=== PATIENT | female | born 1945 | race Caucasian/White ===

== ENCOUNTER 2017-09-16 19:58 | Observation (INO) | payer MEDICARE, OTHER, SELFPAY ==
[2017-09-16 19:59] VITALS: BP 158/75; PULSE 91; RESP 18; TEMP 35.9; O2SAT 99; BMI 25.0
[2017-09-16 22:21] VITALS: BP 147/67; PULSE 82; RESP 16; O2SAT 97
--- NOTE | 2017-09-16 23:09 | EKG12_ITS ---
Test Reason : OTHER PAIN Blood Pressure : / mmHG Vent. Rate : 078 BPM Atrial Rate : 078 BPM P-R Int : 174 ms QRS Dur : 074 ms QT Int : 386 ms P-R-T Axes : 060 004 042 degrees QTc Int : 440 ms Normal sinus rhythm Normal ECG Confirmed by JAMES ISRAEL, ARNAUD ([id number]), editor sound YUDY JARRELL ([id number]) on 09/18/2017 3:37:12 PM Referred By: KATHERYN Confirmed By:ARNAUD RAMIREZ MD
--- NOTE | 2017-09-16 23:09 | RAD_ITS ---
STUDY: X-RAY CHEST REASON FOR EXAM: Female, 71 years old. Back pain radiating down both arms TECHNIQUE: PA and lateral views of the chest. COMPARISON: None. 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 The lungs are clear and expanded. There is no demonstrated pleural abnormality. Normal size heart. Normal mediastinum and jose. Normal visualized pulmonary arteries. Normal visualized aortic arch and descending thoracic aorta. There is a minimal lower thoracic levoscoliosis. Normal visualized ribs, clavicles, and shoulders. There is no demonstrated abnormality of the visualized soft tissue structures of the upper abdomen. RAD/Chest PA and Lateral IMPRESSION: Minimal lower thoracic levoscoliosis. No acute cardiopulmonary disease process is seen. Electronically Signed: Nish Gonzalez MD at 23:55 EDT , Service support ,
--- NOTE | 2017-09-16 23:13 | NURSING ---
NO OLD EKG'S IN MUSE
[2017-09-16 23:14] VITALS: O2SAT 97
[2017-09-16 23:27] LABS: Absolute Neutrophil Count 3.4 X10^3/uL (2.0-7.7); Basophil# 0.02 X10^3/uL; Basophil% 0.3 % (0-1); Eosinophil# 0.07 X10^3/uL; Eosinophils% 1.1 % (0-5); Hematocrit 39.8 % (37-47); Hemoglobin 13.2 g/dl (12.0-15.0); Lymphocyte % 35.7 % (19-41); Mean Corp Hgb Conc 33.2 g/gl (32-36); Mean Corpuscular Hgb 28.9 pg (27.0-32.0); Mean Corpuscular Volume 87.1 fL (81-99); Mean Platelet Vol. 9.1 fl (6.2-12.0); Monocyte# 0.65 X10^3/uL; Monocyte% 10.1 % (0-10); Neutrophil # 3.41 X10^3/uL (2.7-7.7); Neutrophil % 52.8 % (47-70); POSITIVE COUNT NO; POSITIVE DIFFERENTIAL NO; POSITIVE MORPHOLOGY NO; Platelet Count 225 K/mm3 (150-450); RBC Distribution Width CV 12.6 % (11.6-14.6); RBC Distribution Width SD 40.5 fl (35.1-43.9); Red Blood Count 4.57 M/mm3 (4.2-5.4); White Blood Count 6.5 K/mm3 (4.4-11.0)
[2017-09-16 23:49] LABS: Anion Gap 6 (5-15); BUN 12 mg/dL (7-18); BUN/Creat Ratio 16.2 RATIO (10-20); Calcium,Total 9.2 mg/dL (8.5-10.1); Chloride 104 mmol/L (98-107); Creatinine, Serum 0.74 mg/dL (0.55-1.02); EST Glomerular Filtration Rate 82 mL/min (>60); Est Glom Filt Rate - Afr Amer 100 mL/min (>60); Glucose 135 mg/dL (74-106); Potassium 3.3 mmol/L (3.5-5.1); Sodium Level 141 mmol/L (136-145)
[2017-09-17] VITALS (11 sets, daily range): BP systolic 118–148; BP diastolic 54–81; PULSE 71–91; RESP 15–18; TEMP 36.7–37.1; O2SAT 97–98; BMI 25.0
--- NOTE | 2017-09-17 00:31 | ED.DCSUM_ITS ---
- ER Visit Summary Date of Service: 09/17/17 Chief Complaint: Bilateral arm pain History of Present Illness: The patient is a 71 F who presents with bilateral arm pain. Over the past 3-4 days she has had intermittent episodes of aching pain in both of her upper arms. She also gets aching pain in her upper back. This lasts several minutes. She denies any anterior chest pain with this. She does note some increased dyspnea on exertion with getting ready to move recently and moving some boxes around. She states when she has these episodes she also becomes clammy or flushed but does not actually break out into a sweat. No nausea or vomiting. No history of coronary disease. Physical Examination: Afebrile vitals are stable Moist mucous membranes Heart regular rate and rhythm Lungs are clear Abdomen soft Alert Symmetric radial pulses Test Results: EKG shows normal sinus rhythm at a rate of 78. Laboratory studies unremarkable including negative troponin and chest x-ray shows no acute process. Emergency Department Course and Treatment: Patient given aspirin here. She has not had pain while here. However I am concerned that her symptoms could possibly be related to atypical angina given her aching bilateral upper arm pain associated with shortness of breath with exertion. I did feel she should be admitted for serial enzymes and stress testing. Patient discussed the hospitalist and admitted. Treatment Plan: [] Disposition: Admit Impression: Bilateral arm pain Shortness of breath This note was generated with [employer] dictation software. It may contain incorrect words, spelling, and punctuation that were not noted in review of the chart prior to signing ED Disposition - Plan for ED Patient: Chief Complaint: Other, Pain/Inj Referrals: Mery Soliz DO [Primary Care Provider] -
--- NOTE | 2017-09-17 01:14 | HP.PCM_ITS ---
Problem List (1) Chest pain Status: Acute Qualifiers: Chest pain type: unspecified Qualified Code(s): R07.9 - Chest pain, unspecified (2) Left arm pain Status: Acute History of Present Illness Date of Admission: 09/17/17 Chief Complaint: left arm pain , mid back pain with exertion The patient is a 71 year old female who presents to the ER with worsening pain in her chest/mid back and left arm. The pain presents after having exerted herself packing to move away. She has a history of hypertension that is controlled. She does not smoke or have high cholesterol. Her father had an DC in his 50s. She will be admitted for observation for further cardiac workup. Past Medical History Allergies No Known Allergies Allergy (Verified 09/16/17 19:59) Home Medications: Ambulatory Orders Medication Instructions Recorded Estradiol [Estrace] 1 mg PO QODAY 04/29/17 Hydrochlorothiazide [Hctz] 25 mg PO DAILY 04/29/17 Levothyroxine [Synthroid] 75 mcg PO DAILY 04/29/17 Metoprolol Tartrate [Lopressor 25 mg PO BID 04/29/17 (Beta Gary)] Potassium Chloride [K-Dur] 20 meq PO BID #10 tablet 04/29/17 Quinapril HCl [Accupril] 20 mg PO DAILY 04/29/17 Smoking Status: Never smoker - *Family History Maternal History Items: No pertinent history Review of Systems Constitutional: Denies: Chills, Fever, Weight Change HEENT: Denies: Head Aches, Sinus Congestion, Sinus Drainage Cardiovascular: Reports: Chest Pain. Denies: Palpitations Respiratory: Denies: Cough, Shortness of breath at rest, Sputum production Gastrointestinal: Denies: Abdominal Pain, Nausea, Vomiting Genitourinary: Denies: Dysuria Musculoskeletal: Denies: Joint Pain, Joint Tenderness Skin: Denies: Rash, Wounds Neurological: Denies: Numbness, Tingling, Focal weakness Psychiatric: Denies: Anxiety, Depression, Homicidal Ideations, Suicidal Ideations Hematologic/ Lymphatic: Denies: Easy Bruising, Easy Bleeding VTE Information - Inpt Only VTE Present on Admission: No VTE Mechan Device Prophylaxis: None VTE Pharm Prophylaxis ordered?: Yes Patient Problems: Active and Suspected Problems Chest pain (Acute) Left arm pain (Acute) - Physical Exam General: Alert, Oriented x3, Cooperative HEENT: Atraumatic, Normocephalic Neck: Supple Lungs: Clear to auscultation, Normal air movement Cardiovascular: Regular rate, Regular Rhythm, Normal S1, Normal S2, No murmurs Abdomen: Bowel Sounds Present, Soft, Non Tender Extremities: No edema, Capillary Refill Less than 3 Seconds Skin: No rashes Musculoskeletal: No Tenderness to Palpation of Joints or Extremities Neurological: Neuro grossly intact Psych/Mental Status: Normal Affect, Appropriate Vital Signs Temp Pulse Resp BP Pulse Ox 96.6 F L 82 16 147/67 H 97 09/16/17 19:59 09/16/17 22:21 09/16/17 22:21 09/16/17 22:21 09/16/17 23:14 Oxygen Delivery Method Room Air Weight: 136 lb 14.513 oz Body Mass Index (BMI) 25.0 Laboratory Tests Past 24 Hrs 09/16/17 09/16/17 23:20 23:20 WBC 6.5 RBC 4.57 Hgb 13.2 Hct 39.8 MCV 87.1 MCH 28.9 MCHC 33.2 RDW 12.6 RDW Differential 40.5 Plt Count 225 MPV 9.1 Immature Gran % (Auto) 0.000 Neut % (Auto) 52.8 Lymph % (Auto) 35.7 [place] % (Auto) 10.1 H Eos % (Auto) 1.1 Baso % (Auto) 0.3 Absolute Neuts (auto) 3.4 Absolute Lymphs (auto) 2.30 Total Counted Not Reportable Sodium 141 Potassium 3.3 L Chloride 104 Carbon Dioxide 31.0 Anion Gap 6 BUN 12 Creatinine 0.74 Estim Creat Clear Calc 41.40 Est GFR (MDRD) Af Amer 100 Est GFR (MDRD) Non-Af 82 BUN/Creatinine Ratio 16.2 Glucose 135 H Calcium 9.2 Troponin I < 0.02 Assessment/Plan Active and Suspected Problems Chest pain (Acute) Left arm pain (Acute) Plan - admit for observation to PCU - cycle cardiac markers - morphine, oxygen, nitro and aspirin per routine protocol - nuclear exercise stress test in am - LMWH for DVT prophylaxis Code Visit OBSV E&M: 59357 Initial observation care L2
[2017-09-17] MEDS: Aspirin 81 MG TAB.CHEW 324 MG PO (01:58)
[2017-09-17] MEDS: Aspirin E.C. 81 MG Tablet PO (05:37)
[2017-09-17] MEDS: Levothyroxine 75 MCG Tablet PO (05:37)
[2017-09-17] MEDS: Lisinopril 20 MG Tablet PO (05:37)
[2017-09-17 07:07] LABS: Absolute Lymphocyte Count 1.81 X10^3/ul (0.83-4.51); Absolute Neutrophil Count 3.2 X10^3/uL (2.0-7.7); Basophil# 0.02 X10^3/uL; Basophil% 0.3 % (0-1); Eosinophils% 1.7 % (0-5); Hematocrit 39.2 % (37-47); Hemoglobin 13.3 g/dl (12.0-15.0); Lymphocyte # 1.81 X10^3/ul (4.0); Lymphocyte % 30.9 % (19-41); Mean Corp Hgb Conc 33.9 g/gl (32-36); Mean Corpuscular Hgb 29.3 pg (27.0-32.0); Mean Corpuscular Volume 86.3 fL (81-99); Mean Platelet Vol. 9.1 fl (6.2-12.0); Monocyte# 0.73 X10^3/uL; Monocyte% 12.5 % (0-10); Neutrophil # 3.18 X10^3/uL (2.7-7.7); Neutrophil % 54.4 % (47-70); Platelet Count 262 K/mm3 (150-450); RBC Distribution Width CV 12.5 % (11.6-14.6); Red Blood Count 4.54 M/mm3 (4.2-5.4); White Blood Count 5.9 K/mm3 (4.4-11.0)
[2017-09-17 07:12] LABS: POSITIVE COUNT NO; POSITIVE DIFFERENTIAL NO; POSITIVE MORPHOLOGY NO
[2017-09-17 07:21] LABS: Prothrombin Time (Protime)PT. 13.4 SECONDS (11.7-14.9)
[2017-09-17 07:22] LABS: Partial Thromboplast Time 27.2 Seconds (24.1-36.2)
[2017-09-17 07:26] LABS: AST(SGOT) 16 U/L (15-37); Alanine Aminotransfer ALT/SGPT 16 U/L (13-56); Albumin, Serum 3.3 g/dL (3.2-5.0); Alkaline Phosphatase 75 U/L (45-117); Anion Gap 7 (5-15); BUN 13 mg/dL (7-18); BUN/Creat Ratio 20.6 RATIO (10-20); Calcium,Total 8.6 mg/dL (8.5-10.1); Chloride 106 mmol/L (98-107); Cholesterol 225 mg/dL (200); Creatinine, Serum 0.63 mg/dL (0.55-1.02); EST Glomerular Filtration Rate 99 mL/min (>60); Est Glom Filt Rate - Afr Amer 120 mL/min (>60); Globulin 3.2 g/dL (2.2-4.2); Glucose 87 mg/dL (74-106); High Density Lipoprotein 57 mg/dL; Potassium 3.7 mmol/L (3.5-5.1); Protein, Total 6.5 g/dL (6.4-8.2); Sodium Level 143 mmol/L (136-145); Triglycerides 149 mg/dL; Very Low Density Lipoprotein 30 mg/dL (5-40)
[2017-09-17] MEDS: Metoprolol Tartrate 25 MG Tablet PO (10:45)
[2017-09-17] MEDS: Estradiol 1 MG Tablet PO (10:45)
[2017-09-17] MEDS: hydroCHLOROthiazide 25 MG Tablet PO (10:45)
--- NOTE | 2017-09-17 12:27 | STRESSREP ---
Stress Test Report Exercise myocardial perfusion stress test. 71-year-old lady with a history of chest pain. Stress protocol: Resting EKG demonstrates normal sinus rhythm with rate of 90 bpm normal intervals are noted resting blood pressure is 126/80 mmHg. The patient exercised according to the regular Hever protocol for total duration of 6 minutes and 30 seconds. The maximum heart rate attained was 155 bpm which was 103% of maximum predicted heart rate. The maximum workload attained was 7.7 metabolic equivalents. At rest there were no ST or T-wave changes noted suggest ischemia. The patient maintained sinus rhythm throughout the recording. At peak exercise upsloping ST changes only were noted we did not meet the criteria for ischemia. The resting blood pressure is 126/80 with a peak blood pressure 142/74. Rate pressure product was 21,700. No clinical angina was noted the test was terminated due to leg fatigue. Cardio perfusion protocol. 12.0 mCi of technetium 99m sestamibi was injected at rest. The patient then exercised for 6-1/2 minutes attaining 7.7 metabolic equivalents. At peak exercise 36.0 mCi of technetium 99m sestamibi was injected. Stress images were obtained. Stress and rest images were reconstructed and compared in the short axis vertical long and horizontal long axis. Gated images were also obtained. Perfusion SPECT analysis: Review of the stress images demonstrate normal uptake of tracer noted in all areas of the myocardium. The resting images similarly demonstrate normal uptake of tracer noted in all areas of the myocardium. No areas of reversibility are noted suggest ischemia no previous infarct is noted. Gated SPECT analysis. The gated ejection fraction is noted to be 82%. Conclusion: Normal exercise myocardial perfusion stress test at a moderate workload. Preserved ejection fraction.
--- NOTE | 2017-09-17 16:10 | PCM.DC ---
- Discharge Diagnoses Current Active Problems: Current Active and Chronic Problems Chest pain (Acute) Left arm pain (Acute) You will use the following diet at home:: Cardiac - low cholesterol, sodium restricted to 2 g per day Your food should be the consistency of: Regular Your liquids should be the consistency of: Regular/Thin Discharge Activity: Return to Normal Activity Allergies/Adverse Reactions: Allergies No Known Allergies Allergy (Verified 09/16/17 19:59) Medications to take at Discharge Estradiol [Estrace] 1 mg PO QODAY 04/29/17 Hydrochlorothiazide [Hctz] 25 mg PO DAILY 04/29/17 Levothyroxine [Synthroid] 75 mcg PO DAILY 04/29/17 Metoprolol Tartrate [Lopressor (beta katie)] 25 mg PO BID 04/29/17 Quinapril HCl [Accupril] 20 mg PO DAILY 04/29/17 Primary Care Physician: Mery Soliz DO [Primary Care Provider] - Please follow up with your Primary Care Physician in: 1-2 weeks Proposed Discharge Date: 09/17/17
--- NOTE | 2017-09-17 16:17 | DS.PCM_ITS ---
Discharge Date and Diagnosis - Problem List Patient Problems: Active and Suspected Problems Chest pain (Acute) Left arm pain (Acute) Date of Admission: 09/17/17 Date of Discharge: 09/17/17 - Primary Discharge Diagnosis Active and Suspected Problems Chest pain - musculoskeletal HTN HLD Hypothyroidism Hospital Course and Treatment Imaging Results: RAD/Chest PA and Lateral IMPRESSION: Minimal lower thoracic levoscoliosis. No acute cardiopulmonary disease process is seen. Stress Test: Conclusion: Normal exercise myocardial perfusion stress test at a moderate workload. Preserved ejection fraction. Operations: None Procedures: Stress test Summary of Care Provided: Physical exam on day of discharge: General: Resting comfortably NAD Psych: A/Ox3 normal affect HEENT: PEARRLA AT NC Neck: Supple NT CV: RRR no m/t/r/g/h Resp: CTA Abd: [id number] Soft NT no guarding or rigidity Ext: DP2+= no edema Skin: W/D normal turgor Lymph/Heme: No active bleeding or adenopathy Neuro: CN2-12 intact Hospital course: The patient is a 71 year old F with a hx of HTN and hypothyroidism who presented to the ER with chest pain with left arm and mid back pain worse with exertion. She developed this while packing and moving boxes getting ready to move back to [place], and reported being under significant stress from this move. She had a hx of HTN and a positive family hx of CAD. She had a negative EKG, negative CXR, and negative troponin. She was admitted to PCU for cardiac monitoring and chest pain workup. She had negative troponins and no events on tele. She underwent stress testing which was negative. She was felt to have musculoskeletal pain. We also checked her lipids here which showed overall elevated total cholesterol and somewhat elevated LDL. I discussed this with her and at this time she did not want to start another medication, but wants to attempt to change her diet to low cholesterol first before beginning this. I advised her to follow up closely with her PCP given her risk factors for heart disease. She was discharged home in stable condition. This patient was seen by Jose Roberto Zamorano PA-C under the supervision of Doctor Tono. [] Discharge Diet: Low fat/ Low Cholesterol, 2000 mg Sodium Diet Discharge Activity: Return to Normal Activity Home Medications: Medications to take at Discharge Estradiol [Estrace] 1 mg PO QODAY 04/29/17 Hydrochlorothiazide [Hctz] 25 mg PO DAILY 04/29/17 Levothyroxine [Synthroid] 75 mcg PO DAILY 04/29/17 Metoprolol Tartrate [Lopressor (beta katie)] 25 mg PO BID 04/29/17 Quinapril HCl [Accupril] 20 mg PO DAILY 04/29/17 Primary Care Physician: Mery Soliz DO [Primary Care Provider] - Please follow up with your Primary Care Physician in: 1-2 weeks Disposition: Home Minutes spent on discharge:: 35 Patient Condition:: Stable Meaningful Use Info Meaningful Use Diagnoses (Choose all that apply): None applicable
== END 2017-09-17 16:50 | disposition home or self-care (01) ==
LOC: ED 09-17 01:37 → PCU 09-17 01:46
PROVIDERS: Admitting Provider Family Medicine; Emergency Provider Emergency Medicine; Family Provider Internal Medicine; PCP Internal Medicine; Visit Provider Internal Medicine
DX: R07.89 Other chest pain (principal); E78.5 Hyperlipidemia, unspecified; I10 Essential (primary) hypertension; E03.9 Hypothyroidism, unspecified; M79.602 Pain in left arm; R06.02 Shortness of breath; Z79.899 Other long term (current) drug therapy
CPT/HCPCS: 36415; 71046; 78452; 80048; 80053; 80061; 84484; 85025; 85610; 85730; 93005; 93017; 99218; 99285; A9500; A4216; G0378